=== PATIENT | female | born 1955 | race Caucasian/White ===

== ENCOUNTER 2018-12-19 06:19 | Day surgery (SDC) | payer OTHER ==
[~2018-12-19] VITALS: Ht 157.5 cm; Wt 79.1 kg
[~2018-12-19 06:19] MED LIST: Estrace Vagin42.5 GM; LEVSOD25; LORA1; Voltaren100 GM
== END 2018-12-19 09:35 | disposition home or self-care (01) ==
LOC: ORSCSDS 06:19
PROVIDERS: Orthopaedic Surgery
PROC: 0SBD4ZZ Excision of Left Knee Joint, Percutaneous Endoscopic Approach (ICD-10-PCS; principal; 2018-12-19 07:30)
DX: S83.242A Other tear of medial meniscus, current injury, left knee, initial encounter (principal); E03.9 Hypothyroidism, unspecified; Z87.891 Personal history of nicotine dependence; Z79.899 Other long term (current) drug therapy
CPT/HCPCS: J0171; J0690; J1100; J1885; J2250; J2370; J2405; J2704; J3010; J7120

== ENCOUNTER → 2019-12-15 | Outpatient (CLI) | payer MEDICARE | END | disposition home or self-care (01) | LOC: LAB SHORT 14:41 → LAB 14:41 | DX: K30 Functional dyspepsia (principal) | CPT/HCPCS: 87338 ==

== ENCOUNTER → 2021-07-01 | Outpatient (CLI) | payer MEDICARE ==
[2021-07-04 15:11] LABS: HPV 16 Negative (Negative); HPV 18 Negative (Negative); HPV OTHER HR TYPES Negative (Negative)
== END ==
LOC: LAB SHORT 13:43 → LAB 13:43
PROVIDERS: Obstetrics & Gynecology
DX: Z01.419 Encounter for gynecological examination (general) (routine) without abnormal findings (principal)
CPT/HCPCS: 87624; G0123